=== PATIENT | female | born 1965 | race Caucasian/White ===

== ENCOUNTER 2021-06-21 09:09 | Day surgery (SDC) | payer BC, SELFPAY ==
[2021-06-21] VITALS (7 sets, daily range): BP systolic 105–130; BP diastolic 65–82; PULSE 60–76; RESP 16–20; TEMP 36.1–37.3; O2SAT 96–99; BMI 26.6
[2021-06-21 09:41] LABS: COVID19 -Nasal RAPID Negative (Negative)
[2021-06-21] MEDS: LACTATED RINGERS 1,000 ML 200 ML IV (10:30)
--- NOTE | 2021-06-21 11:51 | PM.HP.1 ---
History of Present Illness History of Present Illness Date Patient Seen: 06/21/21 Time Patient Seen: 11:51 Chief complaint: [facility] [place] Narrative: The patient presents for colorectal sreening. They have never had any previous examination for such. No personal or family history of colon cancer. On further history denies any recent gastrointestinal symptoms. No nausea, vomiting, abdominal pain, loss of appetite, unexplained weight loss, change in bowel habits, diarrhea, constipation, melena, hematochezia, or bright red blood per rectum. Patient History Medical History Chicken pox (~1973) Irregular menstrual cycle (~2017) Vitiligo (~1994) Family & Social History Family History Mother Hypertension Grandmother Cancer Social History: household members spouse Tobacco & Substance use: Tobacco type cigarettes Smoking Status Current some day smoker alcohol intake current alcohol intake frequency a few times a week Substance Use Type does not use Meds Home Medications and Allergies Home Medications Medication Instructions Recorded Confirmed Type sodium,potassium,mag sulfates 17.5 See Rx Instructions PO .COMPLEX 04/14/21 06/21/21 Rx gram-3.13 gram-1.6 gram oral soln #354 ml (Suprep Bowel Prep Kit) Allergies Allergy/AdvReac Type Severity Reaction Status Date / Time No Known Drug Allergies Allergy Verified 12/21/20 13:55 Exam Vital Signs (past 8 hours): - 06/21/21 10:24 Temperature 99.1 F Pulse Rate 60 Respiratory Rate 16 Blood Pressure 117/81 Pulse Oximetry 99 Oxygen Delivery Method Room Air Narrative Exam Narrative: GENERAL: Adult woman e in no apparent distress HEENT: No scleral icterus CV: Regular rate, no peripheral edema LUNGS: No increased work of breathing. Patient speaks in full sentences without oxygen support. ABDOMEN: Soft, non-tender, non-distended NEURO: Nonfocal, normal strength throughout SKIN: Warm and dry Objective Labs Labs: Laboratory Results - last 24 hr 06/21/21 09:26 SARS-CoV-2 (PCR) Negative Assessment & Plan Assessment & Plan narrative: The patient requires colorectal screening and colonoscopy is recommended. Technical details were discussed. Risks, benefits, alternatives explained. Risks including but not limited to myocardial infarction, aspiration, bleeding, pain, missed lesion, incomplete examination, need for further radiographic studies, colonic perforation, and need for major abdominal surgery were discussed. All questions were answered to their satisfaction, and they are in agreement with this plan. Time Spent With Patient Critical Care time: I spent a total of [] minutes of critical care time on this patient's care today; this time is exclusive of procedural time.
--- NOTE | 2021-06-21 12:19 | P.OP.COLON_ITS ---
Operative Date/Time/Diagnoses Date of procedure: 06/21/21 Time of procedure: 12:20 Pre-op diagnosis: Screening Post-op diagnosis: same Procedure & Clinicians Study performed: Colonoscopy Same procedure as scheduled: Yes Indications: Screening Surgeon: Shun Elizabeth Procedure Notes Procedure in detail: Medications: Conscious sedation using 6mg IV midazolam and 150mcg IV of fentanyl The history and physical was performed/updated and the patient is ASA class is 1. The procedure was discussed in detail with the patient. Potential risks complications including infection, bleeding, missed diagnosis, perforation, need for surgery, and were explained. Their questions were answered and informed consent was obtained. Patient was brought to the procedure room and placed standard monitoring equipment. The patient's vital signs were monitored continuously throughout the entire procedure. Prior to starting time-out was performed. The patient was placed in the left lateral recumbent position. Procedural sedation was adminis tered. Examination began with a thorough inspection of the perianal area there was no evidence of fissures, fistulae, external hemorrhoids or cutaneous malignancy. The colonoscopy scope was then placed into the anal canal and was advanced to the cecum, which was identified by the ileocecal valve, the appendiceal orifice and the confluence of the taenia. The scope was then slowly withdrawn examining colon thoroughly in all directions, irrigating it of any residual stool. FINDINGS 1. No masses or polyps 2. Scattered diverticula The patient tolerated the procedure well. They will be discharged once criteria are met. The prep was of fair quality. The withdrawl time was 7 minutes. The sedation time was 17 minutes. Specimen(s): none sent Complications: none Impression: Normal colonoscopy Post-procedure Recommendations: Colonoscopy in 10 years and High fiber diet Disposition: same day surgery
[2021-06-21] MEDS: MIDAZOLAM 5 MG/5 ML VIAL IV (12:20)
[2021-06-21] MEDS: fentaNYL 250 MCG/5 ML INJ IV (12:21)
--- NOTE | 2021-06-21 13:00 | SUR.PHASEII ---
06/21/21-1299-12 lead ekg done for possible ekg change in or. non symptomatic. ok to proceed with discharge per Consuelo Rice RN .vss. normal 12 lead ekg noted.
== END 2021-06-21 13:05 | disposition home or self-care (01) ==
PROVIDERS: PCP Physician Assistant; Referring Provider Surgery; Visit Provider Surgery
PROC: 0DJD8ZZ Inspection of Lower Intestinal Tract, Via Natural or Artificial Opening Endoscopic (ICD-10-PCS; CPT 45378; principal; 2021-06-21 11:30)
DX: Z12.11 Encounter for screening for malignant neoplasm of colon (principal); Z20.822 Contact with and (suspected) exposure to COVID-19; K57.30 Diverticulosis of large intestine without perforation or abscess without bleeding
CPT/HCPCS: 45378; 87635; 93005; 99152; C9803; J2250; J3010